=== PATIENT | female | born 1925 | race Caucasian/White ===

== ENCOUNTER 2016-05-17 02:30 | Emergency (ER) | payer MEDICARE ==
[2016-05-17 02:36] VITALS: BP 134/86
--- NOTE | 2016-05-17 03:44 | EDM.PDOC ---
ED HPI Trauma - General Chief Complaint: Lower Extremity Injury/Pain Stated Complaint: MED VIA NORTH Time Seen by Provider: 05/17/16 03:15 Source: Reports: Patient History Limitations: Reports: No limitations - History of Present Illness INITIAL COMMENTS - FREE TEXT/NARRATIVE: History of present illness: [89-year-old [place] [facility] [place] She has some right hip pain. No other injuries] Review of systems: As per history of present illness and below otherwise all systems reviewed and negative. Past medical history: As per history of present illness and as reviewed below otherwise noncontributory. Surgical history: As per history of present illness and as reviewed below otherwise noncontributory. Social history: No reported history of drug or alcohol abuse. Family history: As per history of present illness and as reviewed below otherwise noncontributory. Physical exam: HEENT: Atraumatic, normocephalic, pupils reactive, negative for conjunctival pallor or scleral icterus, mucous membranes moist, throat clear, neck supple, nontender, trachea midline. She is missing many teeth Lungs: Clear to auscultation, breath sounds equal bilaterally, chest nontender. Heart: S1S2, regular Abdomen: Soft, nondistended, nontender. Negative for masses or hepatosplenomegaly. Negative for costovertebral tenderness. Pelvis: Manipulation of the right lower extremity does seem to exacerbate cause pain but there is no crepitation or deformity noted on exam Genitourinary: Deferred. Rectal: Deferred. Extremities: Atraumatic, negative for cords or calf pain. Neurovascular unremarkable. Neuro: Awake, alert, oriented. Exam nonfocal. Diagnostics: [X-rays of the right hip and pelvis reveal no fractures I appreciate] Therapeutics: [] Impression: [Right hip contusion] Plan: [She will be returned to the shelter] Definitive disposition and diagnosis as appropriate pending reevaluation and review of above. Allergies/ADRs: Allergies No Known Allergies Allergy (Verified 05/17/16 02:38) Home Medications: Ambulatory Orders Potassium Chloride [Klor-Con M20] 20 meq PO DAILY 03/19/13 [Confirmed 05/17/16] Acetaminophen [Tylenol] 650 mg PO Q4H PRN 05/17/16 [Confirmed 05/17/16] Amino Acids/Protein Hydrolys [Liquacel 100 Liquid Packet] 30 ml PO DAILY [Confirmed 05/17/16] Citalopram Hydrobromide [Celexa] 20 mg PO DAILY 05/17/16 [Confirmed 05/17/16] Diltiazem HCl [Diltiazem 24Hr Cd] 180 mg PO DAILY 05/17/16 [Confirmed 05/17/16] LORazepam [Ativan] 0.5 mg PO ASDIRECTED PRN 05/17/16 [Confirmed 05/17/16] Levothyroxine 25 mcg PO ACBREAKFAST 05/17/16 [Confirmed 05/17/16] Lutein/Minerals/Vit A,C & E [I-Cesar] 1 tab PO DAILY 05/17/16 [Confirmed 05/17/16 ] Past Medical History Cardiovascular History: Reports: Afib, Hypertension, Other (see below) Other Cardiovascular History: "other specified disorders of veins". 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 "Muscle weakness & reduced mobility" Neurological History: Reports: Headaches, chronic, Other (see below) Other Neuro History: amnesia Psychiatric History: Reports: Dementia Endocrine/Metabolic History: Reports: Hypothyroidism Hematologic History: Reports: Other (see below) Other Hematologic History: polycythemia Dermatologic History: Reports: Other (see below) Other Dermatologic History: pruritus, dermatitis, Social & Family History - Tobacco Use Smoking Status *Q: Never Smoker - Caffeine Use Caffeine Use: Reports: None - Alcohol Use Days Per Week of Alcohol Use: 0 - Recreational Drug Use Recreational Drug Use: No Review of Systems - Review of Systems Review Of Systems: ROS reveals no pertinent complaints other than HPI. Trauma Exam - Physical Exam Exam: See Below Course - Vital Signs Last Recorded V/S: Last Vital Signs Temp 36.1 C 05/17/16 02:36 Pulse 95 05/17/16 02:36 Resp 16 05/17/16 02:36 BP 134/86 05/17/16 02:36 Pulse Ox 90 L 05/17/16 02:36 - Orders/Labs/Meds Orders: Active Orders 24 hr Category Date Time Status Hip Min 2V or 3V w Pelvis Rt [CR] Stat Exams 05/17/16 03:15 Ordered Departure - Departure Time of Disposition: 03:43 Disposition: DC/Tfer to [facility] Condition: good Clinical Impression: Contusion of right hip Qualifiers: Encounter type: initial encounter Qualified Code(s): S70.01XA - Contusion of right hip, initial encounter Forms: ED Department Discharge - My Orders Last 24 Hours: My Active Orders 05/17/16 03:15 Hip Min 2V or 3V w Pelvis Rt [CR] Stat - Assessment/Plan Last 24 Hours: My Active Orders 05/17/16 03:15 Hip Min 2V or 3V w Pelvis Rt [CR] Stat
[2016-05-17] MEDS ORDERED: Acetaminophen 325 MG Tab, 50 Tab Bulk Bottle PO ONE (05:35)
[2016-05-17] MEDS ORDERED: Acetaminophen 325 MG Tab PO ONE (05:38)
--- NOTE | 2016-05-17 09:43 | CR ---
Pelvis right hip There is diffuse demineralization. The right hip demonstrates normal alignment. There is no evidence of fracture. There is advanced degenerative joint space loss of the hip. There is mild joint space loss on the left as well. Impression: 1. Osteoarthritis the hips bilaterally, right more advanced than left. 2. No acute findings.
== END 2016-05-17 06:12 ==
LOC: JP.ED 02:30
DX: S70.01XA Contusion of right hip, initial encounter (principal); I48.91 Unspecified atrial fibrillation; I10 Essential (primary) hypertension; M19.90 Unspecified osteoarthritis, unspecified site; F03.90 Unspecified dementia, unspecified severity, without behavioral disturbance, psychotic disturbance, mood disturbance, and anxiety; E03.9 Hypothyroidism, unspecified; W19.XXXA Unspecified fall, initial encounter
CPT/HCPCS: 73502; 99284; A9270; 99282

== ENCOUNTER 2016-05-23 20:22 | Emergency (ER) | payer MEDICARE ==
--- NOTE | 2016-05-23 22:55 | EDM.PDOC ---
ED HPI GI/ABDOMINAL - General Chief Complaint: Abdominal Pain Stated Complaint: ILLNESS Time Seen by Provider: 05/23/16 22:21 Source: Reports: Patient, Family, RN notes reviewed History Limitations: Reports: No limitations - History of Present Illness INITIAL COMMENTS - FREE TEXT/NARRATIVE: 89-year-old female presents emergency department stay he was family from the care home for increased abdominal pain she has had some difficulty over the last couple weeks with a fall from her walker bruised her hip also ended up with some compression fractures has been on a variety of pain medications has not had a bowel movement they believe for 5 days also decreased oral intake and seems to be more confused, difficult to obtain history secondary to confusion - Related Data Allergies/ADRs: Allergies Allergy/AdvReac Type Severity Reaction Status Date / Time No Known Allergies Allergy Verified 05/23/16 21:17 Home Meds: Home Meds Potassium Chloride [Klor-Con M20] 20 meq PO DAILY 03/19/13 [History] Acetaminophen [Tylenol] 650 mg PO Q4H PRN 05/17/16 [History] Amino Acids/Protein Hydrolys [Liquacel 100 Liquid Packet] 30 ml PO DAILY [History] Citalopram Hydrobromide [Celexa] 20 mg PO DAILY 05/17/16 [History] Diltiazem HCl [Diltiazem 24Hr Cd] 180 mg PO DAILY 05/17/16 [History] LORazepam [Ativan] 0.5 mg PO ASDIRECTED PRN 05/17/16 [History] Levothyroxine 25 mcg PO ACBREAKFAST 05/17/16 [History] Lutein/Minerals/Vit A,C & E [I-Cesar] 1 tab PO DAILY 05/17/16 [History] Bisacodyl [Dulcolax] 10 mg RC Q12H 05/23/16 [History] Hydrocodone/Acetaminophen [Hydrocodon-Acetaminophen 5-325] 1 each PO Q4H PRN [History] Polyethylene Glycol 3350 [MiraLAX] 17 gm PO Q1H 05/23/16 [History] fentaNYL [Duragesic] 12 mcg TD Q72H 05/23/16 [History] Past Medical History HEENT History: Reports: Impaired vision, Other (see below) 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 Localized edema Respiratory History: Reports: Other (see below) Other Respiratory History: unspecified dyspnea Genitourinary History: Reports: Urinary incontinence INFORMATION SERVICES TECH History: Reports: Musculoskeletal History: Reports: Fracture, Osteoarthritis, Osteoporosis, Other (see below) Other Musculoskeletal History: "unsteadiness on feet". "Muscle weakness & reduced mobility" Neurological History: Reports: Headaches, chronic, Other (see below) Other Neuro History: amnesia Psychiatric History: Reports: Dementia Endocrine/Metabolic History: Reports: Hypothyroidism Hematologic History: Reports: Other (see below) Other Hematologic History: polycythemia Dermatologic History: Reports: Other (see below) Other Dermatologic History: pruritus, dermatitis, - Infectious Disease History Infectious Disease History: Reports: Chicken pox, Measles, Mumps - Past Surgical History HEENT Surgical History: Reports: Cataract surgery Social & Family History - Tobacco Use Smoking Status *Q: Never Smoker Second Hand Smoke Exposure: No - Caffeine Use Caffeine Use: Reports: None - Alcohol Use Days Per Week of Alcohol Use: 0 - Recreational Drug Use Recreational Drug Use: No ED ROS GENERAL - Review of Systems Review Of Systems: Unable To Obtain ED EXAM, GI/ABD - Physical Exam Exam: See Below Text/Narrative:: General: elderly female, confused but not in distress oriented x1 HEENT: head is atraumatic normocephalic, eyes pupils equal round reactive to light and accommodation sclera clear no conjunctivitis appreciated. Ears blocked by cerumen bilaterally. Nose no septal deviation, nares are clear, no blood present. Mouth mucosa is moist and pink no erythema or exudate noted in soft palate, tongue is midline uvula is midline, dentition is poor Neck: Supple no thyromegaly no tracheal deviation. Nodes: Cervical nodes subclavicular nodes nontender no palpable lymphadenopathy noted. Lungs: clear to auscultation bilaterally with symmetrical respirations, no adventitious noise appreciated. CV: irregularly irregular rate and rhythm S1 and S2 appreciated no murmurs rubs or gallops noted. Abdomen: Soft, nontender, no palpable masses or organomegaly appreciated, no distention no guarding bowel sounds are present, . Neuro: Cranial nerves II through XII grossly intact Skin: Warm and dry, intact Extremities: No lower extremity edema appreciated, Course - Vital Signs Last Recorded V/S: Last Vital Signs Temp 98.0 F 05/23/16 21:01 Pulse 84 05/24/16 00:10 Resp 16 05/24/16 00:10 BP 134/64 05/24/16 00:10 Pulse Ox 98 05/24/16 00:10 - Orders/Labs/Meds Orders: Active Orders 24 hr Category Date Time Status Peripheral IV Care [RC] . DIRECTED Care 05/23/16 22:52 Active Abdomen 1V Flat [CR] Stat Exams 05/23/16 20:43 Taken Abdomen Pelvis w Cont [CT] Urgent Exams 05/23/16 22:51 Taken Peripheral IV Insertion Adult [OM.PC] Urgent Oth 05/23/16 22:51 Ordered Labs: Laboratory Tests 05/23/16 05/23/16 05/23/16 Range/Units 22:51 22:51 22:51 WBC 7.8 (4.5-11.0) K/uL RBC 4.65 (3.30-5.50) M/uL Hgb 14.5 (12.0-15.0) g/dL Hct 43.6 (36.0-48.0) % MCV 94 (80-98) fL MCH 31 (27-31) pg MCHC 33 (32-36) % Plt Count 277 (150-400) K/uL Neut % (Auto) 75 H (36-66) % Lymph % (Auto) 14 L (24-44) % [place] % (Auto) 10 H (2-6) % Eos % (Auto) 0 L (2-4) % Baso % (Auto) 1 (0-1) % Sodium 142 (140-148) mmol/L Potassium 4.0 (3.6-5.2) mmol/L Chloride 107 (100-108) mmol/L Carbon Dioxide 26 (21-32) mmol/L Anion Gap 9.0 (5.0-14.0) mmol/L BUN 40 H (7-18) mg/dL Creatinine 0.8 (0.6-1.0) mg/dL Est Cr Clr Drug Dosing 34.24 mL/min Estimated GFR (MDRD) > 60 (>60) Glucose 96 (74-106) mg/dL Lactic Acid 1.1 (0.4-2.0) mmol/L Calcium 8.7 (8.5-10.1) mg/dL Total Bilirubin 0.5 (0.2-1.0) mg/dL AST 13 L (15-37) U/L ALT 17 (12-78) U/L Alkaline Phosphatase 47 (46-116) U/L Total Protein 6.4 (6.4-8.2) g/dL Albumin 3.3 L (3.4-5.0) g/dL Globulin 3.1 (2.3-3.5) g/dL Albumin/Globulin Ratio 1.1 L (1.2-2.2) Meds: Medications Discontinued Medications Generic Name Dose Route Start Last Admin Trade Name Freq PRN Reason Stop Dose Admin Sodium Chloride 1,000 mls @ 500 mls/hr 05/23/16 23:00 05/23/16 23:04 Normal Saline IV 500 mls/hr ASDIRECTED POLA Administration Sodium Chloride 70 mls @ 3 mls/sec 05/23/16 23:15 05/23/16 23:48 Normal Saline IV 3 mls/sec ASDIRECTED POLA Administration Iopamidol 100 ml 05/23/16 23:15 05/23/16 23:48 Isovue-300 (61%) IV 74 ml . DIRECTED POLA Administration Sodium Chloride 10 ml 05/23/16 22:51 05/23/16 23:48 Saline Flush FLUSH 10 ml ASDIRECTED PRN Administration Keep Vein Open Sodium Chloride 10 ml 05/23/16 23:05 Saline Flush FLUSH 05/23/16 23:06 ONETIME ONE Departure - Departure Time of Disposition: 01:42 Disposition: DC/[facility] to [facility] Condition: poor Clinical Impression: Confusion caused by a drug Instructions: Constipation, Adult Referrals: Shaheed Mota MD [Primary Care Provider] - Forms: ED Department Discharge - My Orders Last 24 Hours: My Active Orders 05/23/16 20:43 Abdomen 1V Flat [CR] Stat 05/23/16 22:51 Abdomen Pelvis w Cont [CT] Urgent Peripheral IV Insertion Adult [OM.PC] Urgent 05/23/16 22:52 Peripheral IV Care [RC] . DIRECTED - Assessment/Plan Last 24 Hours: My Active Orders 05/23/16 20:43 Abdomen 1V Flat [CR] Stat 05/23/16 22:51 Abdomen Pelvis w Cont [CT] Urgent Peripheral IV Insertion Adult [OM.PC] Urgent 05/23/16 22:52 Peripheral IV Care [RC] . DIRECTED Plan: Plan: Assessment Acuity = acute Site and laterality = confusion with vague abdominal pain complicated by recent starting of narcotics including fentanyl Etiology = suspicious for narcotic side effect Manifestations = none Location of injury = home Lab values = CBC, CMP unremarkable CT scan shows no acute process Plan I did discuss values of CT and lab work with the family also concerned about starting fentanyl in somebody who is narcotic bishnu with the history of no bowel movement in 5 days increased confusion I believe this is related to medications therefore recommend stopping the fentanyl stopping the hydrocodone starting ibuprofen and calcitonin for her compression fractures follow up with primary care in 3-5 days for reevaluation
[2016-05-23] MEDS ORDERED: Sodium Chloride 0.9% 1,000 ML IV SCH (23:00)
[2016-05-23] MEDS: Sodium Chloride 0.9% 10 ML Syringe FLUSH PRN ×2 (23:01→23:48)
[2016-05-23] MEDS ORDERED: Sodium Chloride 0.9% 10 ML Syringe FLUSH ONE (23:05)
[2016-05-23] MEDS ORDERED: Iopamidol 612 MG/ML 100 ML Bottle IV SCH (23:15)
[2016-05-24 01:00] VITALS: BP 134/64
--- NOTE | 2016-05-24 09:14 | CR ---
Osteopenia. Mild gaseous distention of the colon. No dilated loops of small bowel.
== END 2016-05-24 01:00 ==
LOC: JP.ED 20:22
DX: R41.0 Disorientation, unspecified (principal); I48.91 Unspecified atrial fibrillation; I10 Essential (primary) hypertension; M19.90 Unspecified osteoarthritis, unspecified site; E03.9 Hypothyroidism, unspecified; Z79.899 Other long term (current) drug therapy; Z98.49 Cataract extraction status, unspecified eye
CPT/HCPCS: 36415; 74000; 74177; 80053; 83605; 85025; 96360; 96361; 99283; 99285; J7030; J7040; J7050; Q9967

== ENCOUNTER 2016-09-21 13:15 | Inpatient (IN) | payer MEDICARE ==
[2016-09-21] MEDS ORDERED: Ondansetron 4 MG/2 ML SDV IVPUSH ONE (14:04)
[2016-09-21] MEDS ORDERED: Pantoprazole 40 MG Vial IVPUSH ONE ×2 (14:04→18:24)
--- NOTE | 2016-09-21 14:05 | EDM.PDOC ---
ED HPI GENERAL MEDICAL PROBLEM - General Chief Complaint: Gastrointestinal Problem Stated Complaint: MED VIA NORTH: VOMITING Time Seen by Provider: 09/21/16 13:26 Source of Information: Reports: Patient, Family History Limitations: Reports: Altered Mental Status (dementia) - History of Present Illness INITIAL COMMENTS - FREE TEXT/NARRATIVE: 89 yo demented female presents to ER via ambulance after coffee ground emesis and ABD pain. Nausea present since this AM, only one emesis. daughter present with pt and states she is at cognitive baseline. - Related Data Allergies Allergy/AdvReac Type Severity Reaction Status Date / Time No Known Allergies Allergy Verified 05/23/16 21:17 Home Meds: Home Meds Potassium Chloride [Klor-Con M20] 20 meq PO DAILY 03/19/13 [History] Acetaminophen [Tylenol] 650 mg PO Q4H PRN 05/17/16 [History] Amino Acids/Protein Hydrolys [Liquacel 100 Liquid Packet] 30 ml PO DAILY [History] Citalopram Hydrobromide [Celexa] 20 mg PO DAILY 05/17/16 [History] Diltiazem HCl [Diltiazem 24Hr Cd] 120 mg PO DAILY 05/17/16 [History] LORazepam [Ativan] 0.5 mg PO ASDIRECTED PRN 05/17/16 [History] Levothyroxine 25 mcg PO ACBREAKFAST 05/17/16 [History] Lutein/Minerals/Vit A,C & E [I-Cesar] 1 tab PO DAILY 05/17/16 [History] Bisacodyl [Dulcolax] 10 mg RC Q12H 05/23/16 [History] Polyethylene Glycol 3350 [MiraLAX] 17 gm PO Q1H 05/23/16 [History] fentaNYL [Duragesic] 12 mcg TD Q72H 05/23/16 [History] Lutein/Minerals/Vit A,C & E [I-Cesar] 1 tab PO DAILY 09/21/16 [History] Past Medical History HEENT History: Reports: Impaired Vision, Other (See Below) 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 "Muscle weakness & reduced mobility" Neurological History: Reports: Headaches, Chronic, Other (See Below) Other Neuro History: amnesia Psychiatric History: Reports: Dementia Endocrine/Metabolic History: Reports: Hypothyroidism Hematologic History: Reports: Anemia, Other (See Below) Other Hematologic History: polycythemia Dermatologic History: Reports: Other (See Below) Other Dermatologic History: pruritus, dermatitis, - Infectious Disease History Infectious Disease History: Reports: Chicken Pox, Measles, Mumps - Past Surgical History HEENT Surgical History: Reports: Cataract Surgery Social & Family History - Tobacco Use Smoking Status *Q: Never Smoker Second Hand Smoke Exposure: No - Caffeine Use Caffeine Use: Reports: None - Alcohol Use Days Per Week of Alcohol Use: 0 - Recreational Drug Use Recreational Drug Use: No ED ROS GENERAL - Review of Systems Review Of Systems: See Below Constitutional: Reports: Fatigue. Denies: Fever, Chills Respiratory: Denies: Shortness of Breath, Wheezing Cardiovascular: Denies: Chest Pain GI/Abdominal: Reports: Abdominal Pain, Decreased Appetite, Hematemesis, Nausea. Denies: Constipation, Diarrhea ED EXAM, GI/ABD - Physical Exam Exam: See Below Exam Limited By: No Limitations General Appearance: Alert, WD/WN, No Apparent Distress Head: Atraumatic, Normocephalic Neck: Normal Inspection, Supple, Non-Tender Respiratory/Chest: No Respiratory Distress, Lungs Clear Cardiovascular: Tachycardia, Systolic Murmur GI/Abdominal: Soft, Hyperactive Bowel Sounds, Tenderness (upper ABD mild) Rectal (Female) Exam: Normal Exam, Normal Rectal Tone Back Exam: Normal Inspection, Full Range of Motion. No: CVA Tenderness (R), CVA Tenderness (L) Psychiatric: Normal Affect, Normal Mood Skin Exam: Warm, Dry, Intact Course - Vital Signs Last Recorded V/S: Last Vital Signs Temp 36.6 C 09/21/16 15:32 Pulse 109 H 09/21/16 15:32 Resp 16 09/21/16 15:32 BP 157/97 H 09/21/16 15:32 Pulse Ox 97 09/21/16 15:32 - Orders/Labs/Meds Orders: Active Orders 24 hr Category Date Time Status Sodium Chloride 0.9% [Normal Saline] 500 ml Med 09/21/16 14:15 Active IV ASDIRECTED Medication Orders Sodium Chloride (Normal Saline) 500 mls @ 250 mls/hr IV ASDIRECTED POLA Last Admin: 09/21/16 14:53 Dose: 250 mls/hr Labs: Laboratory Tests 09/21/16 09/21/16 Range/Units 14:03 14:35 WBC 10.8 (4.5-11.0) K/uL RBC 5.22 (3.30-5.50) M/uL Hgb 16.7 H D (12.0-15.0) g/dL Hct 49.1 H (36.0-48.0) % MCV 94 (80-98) fL MCH 32 H (27-31) pg MCHC 34 (32-36) % Plt Count 303 (150-400) K/uL Neut % (Auto) 87 H (36-66) % Lymph % (Auto) 5 L (24-44) % [place] % (Auto) 8 H (2-6) % Eos % (Auto) 0 L (2-4) % Baso % (Auto) 0 (0-1) % Sodium 140 (140-148) mmol/L Potassium 4.1 (3.6-5.2) mmol/L Chloride 100 (100-108) mmol/L Carbon Dioxide 30 (21-32) mmol/L Anion Gap 10.5 (5.0-14.0) mmol/L BUN 24 H (7-18) mg/dL Creatinine 0.9 (0.6-1.0) mg/dL Est Cr Clr Drug Dosing 30.44 mL/min Estimated GFR (MDRD) 59 L (>60) Glucose 138 H (74-106) mg/dL Calcium 9.3 D (8.5-10.1) mg/dL Total Bilirubin 0.8 D (0.2-1.0) mg/dL AST 17 (15-37) U/L ALT 17 (12-78) U/L Alkaline Phosphatase 89 (46-116) U/L Total Protein 7.7 (6.4-8.2) g/dL Albumin 3.9 (3.4-5.0) g/dL Globulin 3.8 H (2.3-3.5) g/dL Albumin/Globulin Ratio 1.0 L (1.2-2.2) Meds: Medications Generic Name Dose Route Start Last Admin Trade Name Francisca PRN Reason Stop Dose Admin Sodium Chloride 500 mls @ 250 mls/hr 09/21/16 14:15 09/21/16 14:53 Normal Saline IV 250 mls/hr ASDIRECTED POLA Administration Discontinued Medications Generic Name Dose Route Start Last Admin Trade Name Francisca PRN Reason Stop Dose Admin Ondansetron HCl 4 mg 09/21/16 14:04 09/21/16 15:00 Zofran IVPUSH 09/21/16 14:05 4 mg ONETIME ONE Administration Pantoprazole Sodium 40 mg 09/21/16 14:04 09/21/16 15:00 Protonix Iv IVPUSH 09/21/16 14:05 40 mg ONETIME ONE Administration - Re-Assessments/Exams Free Text/Narrative Re-Assessment/Exam: 09/21/16 16:25 IV fluids. no complaints of nausea or pain while in ER. hgb is 16.7 and stol guiac is negative. pt able to eat without difficulty while in ER. pt restless and ready to go home Departure - Departure Time of Disposition: 16:27 Disposition: Home, Self-Care 01 Condition: Good Clinical Impression: Vomiting Qualifiers: Vomiting type: unspecified Vomiting Intractability: non-intractable Nausea presence: with nausea Qualified Code(s): R11.2 - Nausea with vomiting, unspecified - Discharge Information Forms: ED Department Discharge Additional Instructions: encourage fluid intake she would need to be reevaluated if she develops black or blood stools or has more vomiting hgb today was 16.7 this indicates mild dehydration stool did not have blood in it today when it was tested in the emergency room - My Orders Last 24 Hours: My Active Orders 09/21/16 14:15 Sodium Chloride 0.9% [Normal Saline] 500 ml IV ASDIRECTED - Assessment/Plan Last 24 Hours: My Active Orders 09/21/16 14:15 Sodium Chloride 0.9% [Normal Saline] 500 ml IV ASDIRECTED
[2016-09-21] MEDS: Sodium Chloride 0.9% 500 ML IV SCH ×2 (14:53→19:05)
--- NOTE | 2016-09-21 19:04 | PCM.HP ---
H&P History of Present Illness - General Date of Service: 09/21/16 Admit Problem/Dx: Admission Diagnosis/Problem Admission Diagnosis/Problem Bleeding Source of Information: Patient, Family, Provider, RN Notes Reviewed History Limitations: Reports: Altered Mental Status (Dementia) - History of Present Illness Initial Comments - Free Text/Narative: Ms. Brito is an 89-year-old woman who is admitted through the emergency department for further evaluation and management of epigastric abdominal pain associated with nausea and vomiting and probable upper GI bleed. She is a resident of the assisted because of severe dementia and is unable to provide significant information concerning recent symptoms or events. Her daughter is with her today and reports that her mother developed abdominal pain today associated with nausea and vomiting. Initial emesis did appear to be coffee ground and she was brought into the emergency department for further evaluation. She has no previous history of GI bleeds and has not been taking nonsteroidal therapy recently. Her hemoglobin is good at 16, there has been a mild tachycardia but no hypotension. Emesis was checked and found to be heme positive, stool is heme-negative. - Related Data Allergies/Adverse Reactions: Allergies Allergy/AdvReac Type Severity Reaction Status Date / Time No Known Allergies Allergy Verified 05/23/16 21:17 Home Medications: Home Meds Potassium Chloride [Klor-Con M20] 20 meq PO DAILY 03/19/13 [History] Acetaminophen [Tylenol] 650 mg PO Q4H PRN 05/17/16 [History] Amino Acids/Protein Hydrolys [Liquacel 100 Liquid Packet] 30 ml PO DAILY [History] Citalopram Hydrobromide [Celexa] 20 mg PO DAILY 05/17/16 [History] Diltiazem HCl [Diltiazem 24Hr Cd] 120 mg PO DAILY 05/17/16 [History] LORazepam [Ativan] 0.5 mg PO ASDIRECTED PRN 05/17/16 [History] Levothyroxine 25 mcg PO ACBREAKFAST 05/17/16 [History] Lutein/Minerals/Vit A,C & E [I-Cesar] 1 tab PO DAILY 05/17/16 [History] Bisacodyl [Dulcolax] 10 mg RC Q12H 05/23/16 [History] Polyethylene Glycol 3350 [MiraLAX] 17 gm PO Q1H 05/23/16 [History] fentaNYL [Duragesic] 12 mcg TD Q72H 05/23/16 [History] Lutein/Minerals/Vit A,C & E [I-Cesar] 1 tab PO DAILY 09/21/16 [History] Past Medical History HEENT History: Reports: Impaired Vision, Other (See Below) 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 Localized edema Respiratory History: Reports: Other (See Below) Other Respiratory History: dyspnea unspecified Gastrointestinal History: Reports: Diverticulosis Genitourinary History: Reports: Urinary Incontinence CERTIFIED PARALEGAL History: Reports: Musculoskeletal History: Reports: Fracture, Osteoarthritis, Osteoporosis, Other (See Below) Other Musculoskeletal History: "unsteadiness on feet". "Muscle weakness & reduced mobility" Neurological History: Reports: Headaches, Chronic, Other (See Below) Other Neuro History: amnesia Psychiatric History: Reports: Dementia Endocrine/Metabolic History: Reports: Hypothyroidism Hematologic History: Reports: Anemia, Other (See Below) Other Hematologic History: polycythemia Dermatologic History: Reports: Other (See Below) Other Dermatologic History: pruritus, dermatitis, - Infectious Disease History Infectious Disease History: Reports: Chicken Pox, Measles, Mumps - Past Surgical History HEENT Surgical History: Reports: Cataract Surgery Social & Family History - Tobacco Use Smoking Status *Q: Never Smoker Second Hand Smoke Exposure: No - Caffeine Use Caffeine Use: Reports: None - Alcohol Use Days Per Week of Alcohol Use: 0 - Recreational Drug Use Recreational Drug Use: No H&P Review of Systems - Review of Systems: Review Of Systems: Unable To Obtain General: Reports: ROS unobtainable (Secondary to dementia) Exam - Exam Exam: See Below - Vital Signs Vital Signs: Last Vital Signs Temp 97.9 F 09/21/16 15:32 Pulse 110 H 09/21/16 17:44 Resp 15 09/21/16 17:44 BP 161/89 H 09/21/16 17:44 Pulse Ox 95 09/21/16 17:44 Weight: 109 lb 12.643 oz - Exam Quality Assessment: DVT Prophylaxis General: Alert, Cooperative, Mild Distress HEENT: Conjunctiva Clear, Normal Nasal Septum, Posterior Pharynx Clear, Pupils Equal. No: Mucosa Moist & [place] Neck: Supple, Trachea Midline, +2 Carotid Pulse wo Bruit Lungs: Clear to Auscultation, Normal Respiratory Effort Cardiovascular: Regular Rate, Regular Rhythm, Normal S1, Normal S2. No: Systolic Murmur, Diastolic Murmur Abdomen: Normal Bowel Sounds, Soft, Tenderness. No: Organomegaly, Peritoneal Signs, Distention, Guarding, Rigidity, Rebound Back Exam: Normal Inspection, Full Range of Motion, NT Extremities: 3, Normal Inspection, 10 Skin: Warm, Dry, Intact Neurological: Cranial Nerves Intact, Strength Equal Bilateral, Normal Speech, Normal Tone, Sensation Intact. No: Focal Deficit Neuro Extensive - Mental Status: Alert, Normal Mood/Affect, Disorientation to Person, Disorientation to Place, Disorientation to Time, Memory Loss-Remote Events, Memory Loss-Recent Events. No: Normal Cognition, Memory Intact - Patient Data Lab Results Last 24 hrs: Laboratory Results - last 24 hr 09/21/16 09/21/16 Range/Units 14:03 14:35 WBC 10.8 (4.5-11.0) K/uL RBC 5.22 (3.30-5.50) M/uL Hgb 16.7 H D (12.0-15.0) g/dL Hct 49.1 H (36.0-48.0) % MCV 94 (80-98) fL MCH 32 H (27-31) pg MCHC 34 (32-36) % Plt Count 303 (150-400) K/uL Neut % (Auto) 87 H (36-66) % Lymph % (Auto) 5 L (24-44) % Mcculloch % (Auto) 8 H (2-6) % Eos % (Auto) 0 L (2-4) % Baso % (Auto) 0 (0-1) % Sodium 140 (140-148) mmol/L Potassium 4.1 (3.6-5.2) mmol/L Chloride 100 (100-108) mmol/L Carbon Dioxide 30 (21-32) mmol/L Anion Gap 10.5 (5.0-14.0) mmol/L BUN 24 H (7-18) mg/dL Creatinine 0.9 (0.6-1.0) mg/dL Est Cr Clr Drug Dosing 30.44 mL/min Estimated GFR (MDRD) 59 L (>60) Glucose 138 H (74-106) mg/dL Calcium 9.3 D (8.5-10.1) mg/dL Total Bilirubin 0.8 D (0.2-1.0) mg/dL AST 17 (15-37) U/L ALT 17 (12-78) U/L Alkaline Phosphatase 89 (46-116) U/L Total Protein 7.7 (6.4-8.2) g/dL Albumin 3.9 (3.4-5.0) g/dL Globulin 3.8 H (2.3-3.5) g/dL Albumin/Globulin Ratio 1.0 L (1.2-2.2) Result Diagrams: 09/21/16 14:03 09/21/16 14:35 Latrell Results Last 24 hrs: Microbiology 09/21/16 16:58 Gastric Occult Blood - Final Gastric Fluid 09/21/16 14:04 Stool Occult Blood (LATRELL) - Final Stool / Feces NEGATIVE OCCULT BLOOD *Q Meaningful Use (ADM) - VTE *Q VTE Criteria *Q: VTE Pharmacological Contraindications *Q: Active Hemorrhage - VTE Risk Assess *Q Each Risk Factor Represents 1 Point: None Total Score 1 Point Risk Factors: 0 Each Risk Factor Represents 2 Points: None Total Score 2 Point Risk Factors: 0 Each Risk Factor Represents 3 Points: Age 75 Years or Greater Total Score 3 Point Risk Factors: 3 Each Risk Factor Represents 5 Points: None Total Score 5 Point Risk Factors: 0 Venous Thromboembolism Risk Factor Score *Q: 3 - Stroke *Q Stroke Criteria *Q: - AMI *Q AMI Criteria *Q: Problem List Initiated/Reviewed/Updated: Yes Orders Last 24hrs: Active Orders 24 hr Category Date Time Status Patient Status Manage Transfer [TRANSFER] Routine ADT 09/21/16 18:42 Ordered Sodium Chloride 0.9% [Normal Saline] 100 ml Med 09/21/16 18:30 Ordered Pantoprazole [ProTONIX IV] 80 mg IV 10 mls/hr Sodium Chloride 0.9% [Normal Saline] 500 ml Med 09/21/16 14:15 Active IV ASDIRECTED Resuscitation Status Routine Resus Stat 09/21/16 18:46 Ordered Medication Orders Sodium Chloride (Normal Saline) 500 mls @ 250 mls/hr IV ASDIRECTED POLA Last Admin: 09/21/16 14:53 Dose: 250 mls/hr Pantoprazole Sodium 80 mg/ (Sodium Chloride) 100 mls @ 10 mls/hr IV .Q10H POLA Assessment/Plan Comment:: ASSESSMENT AND PLAN UPPER GI BLEED-associated with epigastric abdominal pain as well as nausea vomiting. Earlier today had coffee-ground appearing emesis which was found to be heme positive. Patient is unable to provide significant history concerning recent symptoms or events because of underlying severe dementia. No previous history of GI bleeding or significant ulcer disease. -IV fluids for hydration -Protonix 80 mg IV -Protonix 8 mg per hour continuous infusion -Pain and antiemetic therapy as needed -Serial hemoglobin levels -Consult Dr. Bejarano for EGD in a.m. DEMENTIA PALLIATIVE CARE-family does not want further aggressive intervention except for medication and EGD as noted above. HYPOTHYROIDISM -Continue outpatient medical therapy MAINTENANCE ISSUES -DVT prophylaxis; SCUDs, hold on anticoagulation given active bleeding -GI prophylaxis; Protonix as above -Serrano catheter; not indicated -Nutrition; nothing by mouth -Nicotine dependence; not required CODE STATUS-DNR/DNI ADMISSION STATUS-patient will be admitted to inpatient status, expect at least a 2 night hospital stay for evaluation and management of problems as outlined above. At the time of this admission I do not reasonably expected evaluation and management of this problem will require more than a 96 hour hospital stay. DISPOSITION-anticipate discharge to home after the hospital stay. PRIMARY CARE PROVIDER-Dr. Mota
[2016-09-21] MEDS ORDERED: Magnesium Hydroxide 400 MG/5 ML Susp 30 ML Cup PO PRN (19:30)
[2016-09-21] MEDS ORDERED: Acetaminophen 325 MG Tab PO PRN (19:30)
[2016-09-21] MEDS ORDERED: Morphine 2 MG/ML Syringe IVPUSH PRN (19:30)
[2016-09-21] MEDS ORDERED: Ondansetron 4 MG/2 ML SDV IV PRN (19:30)
[2016-09-21] MEDS ORDERED: Albuterol 0.083% 2.5 MG/3 ML Neb Soln NEB PRN (19:30)
[2016-09-21] MEDS ORDERED: Sodium Chloride 0.9% 10 ML Syringe FLUSH PRN (19:30)
[2016-09-21] MEDS ORDERED: Polyethylene Glycol 3350 Powder 17 GM Packet PO PRN (19:30)
[2016-09-21] MEDS ORDERED: Docusate Sodium 100 MG Cap PO PRN (19:30)
[2016-09-21] MEDS ORDERED: Sodium Chloride 0.9% 500 ML IV ONE (19:30)
[2016-09-21] MEDS ORDERED: LORazepam 0.5 MG Tab PO PRN (19:30)
[2016-09-21] MEDS ORDERED: oxyCODONE 5 MG Tab PO PRN (19:30)
[2016-09-21] MEDS: Pantoprazole 80 MG in Sodium Chloride 0.9% 100 ML IV SCH (19:37)
[2016-09-21] MEDS ORDERED: fentaNYL 12 MCG/HR Transdermal Patch TRDERM SCH (20:00)
[2016-09-21] MEDS: Sodium Chloride 0.9% 1,000 ML IV SCH (22:33)
[2016-09-21] MEDS: Melatonin 3 MG Tab PO SCH ×2 (22:33→23:00)
[2016-09-22] MEDS: Sodium Chloride 0.9% 1,000 ML IV SCH ×2 (00:07→08:18)
[2016-09-22] MEDS: Pantoprazole 80 MG in Sodium Chloride 0.9% 100 ML IV SCH (05:32)
[2016-09-22] MEDS ORDERED: Levothyroxine 25 MCG Tab PO SCH (07:30)
[2016-09-22 07:32] VITALS: BP 120/91
[2016-09-22] MEDS ORDERED: Potassium Chloride 40 MEQ in Premix Bag 1 BAG IV ONE (08:24)
[2016-09-22] MEDS ORDERED: Propofol 200 MG/20 ML SDV ONE (08:27)
[2016-09-22] MEDS ORDERED: CHECK FENTANYL PATCH SCH (09:00)
[2016-09-22] MEDS ORDERED: AMINO ACIDS PO SCH (09:00)
[2016-09-22] MEDS ORDERED: Citalopram 20 MG Tab PO SCH (09:00)
[2016-09-22] MEDS ORDERED: Diltiazem 120 MG Cap.CD PO SCH (09:00)
[2016-09-22] MEDS ORDERED: PROTEIN HYDROLYS PO SCH (09:00)
[2016-09-22] MEDS ORDERED: Potassium Chloride 20 MEQ Tab.ER PO SCH (09:00)
[2016-09-22] MEDS ORDERED: [UNRECOGNIZED DRUG - OTHER] PO SCH (09:00)
[2016-09-22] MEDS ORDERED: CHECK FENTANYL PATCH TOP SCH (09:00)
[2016-09-22] MEDS ORDERED: Potassium Chloride 20 MEQ, Lidocaine 1% 2 ML in Sodium Chloride 0.9% 100 ML IV SCH (09:30)
--- NOTE | 2016-09-22 11:11 | PCM.DCSUM1 ---
Discharge Summary - Hospital Course Brief History: Ms. Brito is an 89-year-old woman who was admitted through the emergency department for further evaluation of hematemesis, nausea vomiting, and abdominal pain. - Discharge Data Discharge Date: 09/22/16 Discharge Disposition: DC/Tfer to SNF 03 Condition: Fair - Discharge Diagnosis/Problem(s) (1) Vomiting SNOMED Code(s): 100656647 ICD Code: R11.10 - VOMITING, UNSPECIFIED Status: Acute Current Visit: Yes Qualifiers: Vomiting type: unspecified Vomiting Intractability: non-intractable Nausea presence: with nausea Qualified Code(s): R11.2 - Nausea with vomiting, unspecified (2) Abdominal pain SNOMED Code(s): 21381322 ICD Code: R10.9 - UNSPECIFIED ABDOMINAL PAIN Status: Acute Current Visit : No (3) Alzheimer's dementia SNOMED Code(s): 39770716 ICD Code: G30.9 - ALZHEIMER'S DISEASE, UNSPECIFIED Status: Acute Current Visit: Yes - Patient Summary/Data Consults: Consultations 09/21/16 19:30 Consult to Physician [CONS] Routine Consulting Provider: George Bejarano Call Completed to Consulting Physician: Yes Reason for Consult: For EGD in a.m., upper GI bleed Hospital Course: Ms. Brito is an 89-year-old woman who is a resident of [facility] because of progressive dementia. On the day of admission developed abdominal pain in the upper abdomen associated with nausea vomiting and coffee ground appearing emesis. On evaluation in the emergency department hemoglobin was good at 16, emesis was found to be heme positive and it was assumed that she had upper GI bleed. She was admitted to the hospital and placed on IV Protonix as a continuous infusion after she received 80 mg IV bolus. She was given IV fluids for hydration and serial hemoglobin levels were monitored. By the following morning after hydration her hemoglobin had dropped to 12. She remained hemodynamically stable after admission, in the emergency department was noted be tachycardic but this resolved with IV fluids. Plan had been to proceed with EGD for further evaluation of her symptoms. Patient refused the procedure and after further discussion with family decision was made to not proceed with any further aggressive interventions or evaluation. Family feels that this very consistent with the patient's previously expressed wishes and that she would not want any type of care that would prolong her life. She will be discharged back to the long-term DNR/DNI comfort cares only with no further hospitalizations. Consult has been set up with hospice staff to meet with the family in the next few days to discuss hospice admission. Activity will be as tolerated and she will resume her usual diet. She will be on Protonix 40 mg twice daily for 2 weeks then once daily thereafter. Follow-up with primary care will be as needed at the long-term. - Patient Instructions Diet: Usual Diet as Tolerated Activity: As Tolerated Other/Special Instructions: Follow-up at the long-term with primary care as needed. Hospice staff to meet with family concerning possible hospice admission. Patient will now be DNR/DNI comfort cares only, no further hospital admissions. - Discharge Plan Prescriptions/Med Rec: Pantoprazole Sodium [Protonix] 40 mg PO BID #30 tablet.dr Arellano Medications: Home Meds Potassium Chloride [Klor-Con M20] 20 meq PO DAILY 03/19/13 [History] Acetaminophen [Tylenol] 650 mg PO Q4H PRN 05/17/16 [History] Amino Acids/Protein Hydrolys [Liquacel 100 Liquid Packet] 30 ml PO DAILY [History] Citalopram Hydrobromide [Celexa] 20 mg PO DAILY 05/17/16 [History] Diltiazem HCl [Diltiazem 24Hr Cd] 120 mg PO DAILY 05/17/16 [History] LORazepam [Ativan] 0.5 mg PO ASDIRECTED PRN 05/17/16 [History] Levothyroxine 25 mcg PO ACBREAKFAST 05/17/16 [History] Lutein/Minerals/Vit A,C & E [I-Cesar] 1 tab PO DAILY 05/17/16 [History] Bisacodyl [Dulcolax] 10 mg RC Q12H 05/23/16 [History] Polyethylene Glycol 3350 [MiraLAX] 17 gm PO Q1H 05/23/16 [History] fentaNYL [Duragesic] 12 mcg TD Q72H 05/23/16 [History] Lutein/Minerals/Vit A,C & E [I-Cesar] 1 tab PO DAILY 09/21/16 [History] Pantoprazole Sodium [Protonix] 40 mg PO BID #30 tablet. 09/22/16 [Rx] Referrals: Shaheed Mota MD [Primary Care Provider] - - Patient Data Vitals - Most Recent: Last Vital Signs Temp 98.6 F 09/22/16 07:30 Pulse 96 09/22/16 10:07 Resp 16 09/22/16 07:30 BP 120/91 H 09/22/16 10:07 Pulse Ox 95 09/22/16 07:30 Weight - Most Recent: 105 lb 8 oz I&O - Last 24 hours: Intake & Output 09/21/16 09/22/16 09/22/16 22:59 06:59 14:59 Intake Total 1712 486 Output Total 450 Balance 1262 486 Lab Results - Last 24 hrs: Laboratory Results - last 24 hr 09/21/16 09/22/16 09/22/16 Range/Units 22:25 06:11 06:11 WBC 9.0 (4.5-11.0) K/uL RBC 4.02 (3.30-5.50) M/uL Hgb 13.6 D 12.7 (12.0-15.0) g/dL Hct 39.0 (36.0-48.0) % MCV 97 (80-98) fL MCH 32 H (27-31) pg MCHC 33 (32-36) % Plt Count 243 (150-400) K/uL Neut % (Auto) 78 H (36-66) % Lymph % (Auto) 10 L (24-44) % Dolores % (Auto) 12 H (2-6) % Eos % (Auto) 0 L (2-4) % Baso % (Auto) 0 (0-1) % Sodium 142 (140-148) mmol/L Potassium 3.4 L (3.6-5.2) mmol/L Chloride 109 H (100-108) mmol/L Carbon Dioxide 25 (21-32) mmol/L Anion Gap 11.4 (5.0-14.0) mmol/L BUN 22 H (7-18) mg/dL Creatinine 0.8 (0.6-1.0) mg/dL Est Cr Clr Drug Dosing 34.24 mL/min Estimated GFR (MDRD) > 60 (>60) Glucose 102 (74-106) mg/dL Calcium 7.5 L D (8.5-10.1) mg/dL Med Orders - Current: Current Medications Acetaminophen (Tylenol) 650 mg PO Q4H PRN PRN Reason: Pain (Mild 1-3)/fever Albuterol (Proventil Neb Soln) 2.5 mg NEB Q4H PRN PRN Reason: Shortness Of Breath/wheezing Citalopram Hydrobromide (Celexa) 20 mg PO DAILY [facility] Last Admin: 09/22/16 10:08 Dose: 20 mg Diltiazem HCl (Cardizem Cd) 120 mg PO DAILY [facility] Last Admin: 09/22/16 10:07 Dose: 120 mg Docusate Sodium (Colace) 100 mg PO BID PRN PRN Reason: Constipation Pantoprazole Sodium 80 mg/ (Sodium Chloride) 100 mls @ 10 mls/hr IV Q10H [facility] Last Admin: 09/22/16 05:32 Dose: 10 mls/hr Sodium Chloride (Normal Saline) 1,000 mls @ 125 mls/hr IV ASDIRECTED [facility] Last Admin: 09/22/16 08:18 Dose: 125 mls/hr Potassium Chloride 20 meq/Lidocaine HCl 2 ml/ Sodium Chloride 112 mls @ 56 mls/ hr IV Q2H [facility] Stop: 09/22/16 13:29 Last Admin: 09/22/16 10:24 Dose: Not Given Levothyroxine Sodium (Levothyroxine) 25 mcg PO ACBREAKFAST [facility] Last Admin: 09/22/16 10:07 Dose: 25 mcg Lorazepam (Ativan) 0.5 mg PO ASDIRECTED PRN PRN Reason: Anxiety Magnesium Hydroxide (Milk Of Magnesia) 30 ml PO Q12H PRN PRN Reason: Constipation Melatonin (Melatonin) 9 mg PO BEDTIME [facility] Last Admin: 09/21/16 23:00 Dose: 9 mg Morphine Sulfate (Morphine) 2 mg IVPUSH Q2H PRN PRN Reason: Pain (severe 7-10) Check Fentanyl Patch 1 each TOP BID [facility] Last Admin: 09/22/16 10:14 Dose: Not Given Ondansetron HCl (Zofran) 4 mg IV Q4H PRN PRN Reason: Nausea/Vomiting Oxycodone HCl (Oxycodone) 5 mg PO Q4H PRN PRN Reason: Pain (moderate 4-6) Liquacel 100 (Ptom) 0 each PO DAILY [facility] Polyethylene Glycol (Miralax) 17 gm PO DAILY PRN PRN Reason: Constipation Potassium Chloride (Klor-Con M20) 20 meq PO DAILY [facility] Last Admin: 09/22/16 10:08 Dose: 20 meq Sodium Chloride (Saline Flush) 10 ml FLUSH ASDIRECTED PRN PRN Reason: Keep Vein Open Discontinued Medications Fentanyl (Duragesic) 12 mcg TRDERM Q72H [facility] Last Admin: 09/21/16 20:32 Dose: 12 mcg Sodium Chloride (Normal Saline) 500 mls @ 250 mls/hr IV ASDIRECTED [facility] Last Admin: 09/21/16 19:05 Dose: 250 mls/hr Sodium Chloride (Normal Saline) 500 mls @ 250 mls/hr IV ONETIME ONE Stop: 09/21/16 21:29 Last Admin: 09/21/16 20:33 Dose: 250 mls/hr Ondansetron HCl (Zofran) 4 mg IVPUSH ONETIME ONE Stop: 09/21/16 14:05 Last Admin: 09/21/16 15:00 Dose: 4 mg Pantoprazole Sodium (Protonix Iv) 40 mg IVPUSH ONETIME ONE Stop: 09/21/16 14:05 Last Admin: 09/21/16 15:00 Dose: 40 mg Pantoprazole Sodium (Protonix Iv) 40 mg IVPUSH ONETIME ONE Stop: 09/21/16 18:25 Last Admin: 09/21/16 18:44 Dose: 40 mg Propofol (Diprivan 20 Ml) Confirm Administered Dose 200 mg .ROUTE .STK-MED ONE Stop: 09/22/16 08:28 *Q Meaningful Use (DIS) - VTE *Q VTE Criteria *Q: VTE Pharmacological Contraindications *Q: Active Hemorrhage - Stroke *Q Stroke Criteria *Q: - AMI *Q AMI Criteria *Q:
--- NOTE | 2016-09-22 13:58 | CONS ---
DATE OF SERVICE: 09/22/2016 REFERRING PHYSICIAN: CONSULTING PHYSICIAN: George Bejarano MD REASON FOR CONSULTATION: Evaluation of GI bleeding. HISTORY OF PRESENT ILLNESS: This is a pleasant 89-year-old female who was originally seen in the emergency department and diagnosed with epigastric/abdominal pain which is also complicated by nausea, vomiting, and hematemesis. This was further complicated by the patient's advanced dementia. PAST MEDICAL HISTORY: Complex but with history of atrial fibrillation, hypertension, edema, diverticulosis, urinary incontinence, multiple fractures with respect to orthopedics, dementia, hypothyroidism, anemia, polycythemia, pruritus, dermatitis, history of chicken pox, measles, and mumps. SOCIAL HISTORY: She does not smoke. REVIEW OF SYSTEMS: GENERAL: The patient continues to be deteriorated secondary to her dementia. HEENT: No reported changes. CARDIOVASCULAR: No recently reported myocardial infarction. RESPIRATORY: No recently reported shortness of breath. GASTROINTESTINAL: As above. GENITOURINARY: Nitrite positive noted in her urinalysis. The remainder review of systems was reviewed and is negative. PHYSICAL EXAMINATION: HEENT: The patient is blind in her right eye. GENERAL: The patient has unfortunately inappropriate comments secondary to her dementia and is a poor historian. NEUROLOGICAL: She is not oriented. PSYCH: Significant dementia issues. LABORATORY DATA: Laboratory results show a hemoglobin 16.7. IMAGING: The patient has not had a recent imaging results. ASSESSMENT/PLAN: 1. Dementia. 2. Probable GI bleed. PLAN: The patient's family has deferred the EGD at this time. We did discuss risks benefits, alternatives, and limitations of the surgery and none surgery. I think this is a challenging position for the family with respect to the patient's cognitive status. We will await any further changes from them. Of note, this history and physical relies heavily on the chart and the patient for the data as the patient has significant dementia. George Bejarano MD /[id number]
[2016-09-23] MEDS ORDERED: LIQUACEL PO SCH (09:00)
== END 2016-09-22 12:05 | DRG 379 ==
LOC: JP.ED 13:15 → JP.MS 18:42
PROVIDERS: ADMIT Hospitalist; ATTEND Hospitalist
DX: R11.2 Nausea with vomiting, unspecified (principal); E86.0 Dehydration; K92.0 Hematemesis; R10.9 Unspecified abdominal pain; G30.9 Alzheimer's disease, unspecified; F02.80 Dementia in other diseases classified elsewhere, unspecified severity, without behavioral disturbance, psychotic disturbance, mood disturbance, and anxiety; Z53.20 Procedure and treatment not carried out because of patient's decision for unspecified reasons; Z66 Do not resuscitate; I48.91 Unspecified atrial fibrillation; E03.9 Hypothyroidism, unspecified; I10 Essential (primary) hypertension; D64.9 Anemia, unspecified
CPT/HCPCS: 36415; 80053; 82271; 82272; 85025; 96361; 96365; 96375; 96376; 99285; C9113; J2405; J7040; 80048; 85018; 99284; A9270-GY; J2704; J7030